=== PATIENT | male | born 1990 | race Caucasian/White ===

== ENCOUNTER 2018-06-10 01:07 | Emergency (ER) | payer SELFPAY ==
[~2018-06-10] VITALS: Ht 165.1 cm; Wt 57.2 kg
[2018-06-10 01:59] VITALS: BP 123/69
== END 2018-06-10 02:00 | disposition home or self-care (01) ==
LOC: ED 01:07
DX: S01.81XA Laceration without foreign body of other part of head, initial encounter (principal); W01.198A Fall on same level from slipping, tripping and stumbling with subsequent striking against other object, initial encounter; Y93.89 Activity, other specified; Y92.89 Other specified places as the place of occurrence of the external cause; Y99.8 Other external cause status
CPT/HCPCS: 90715; J2001

== ENCOUNTER 2019-12-14 18:48 | Emergency (ER) | payer SELFPAY ==
[~2019-12-14] VITALS: Ht 167.6 cm; Wt 59.0 kg
[2019-12-14 19:10] VITALS: Ht 167.6 cm; Wt 59.0 kg
[2019-12-14 20:50] VITALS: BP 131/74
== END 2019-12-14 20:50 | disposition home or self-care (01) ==
LOC: ED 18:48
DX: S61.210A Laceration without foreign body of right index finger without damage to nail, initial encounter (principal); S61.212A Laceration without foreign body of right middle finger without damage to nail, initial encounter; S61.214A Laceration without foreign body of right ring finger without damage to nail, initial encounter; S61.216A Laceration without foreign body of right little finger without damage to nail, initial encounter; W26.0XXA Contact with knife, initial encounter; Y93.89 Activity, other specified; Y92.89 Other specified places as the place of occurrence of the external cause; Y99.8 Other external cause status
CPT/HCPCS: 90715; J2001

== ENCOUNTER 2020-07-05 20:01 | Emergency (ER) | payer SELFPAY ==
[~2020-07-05] VITALS: Ht 167.6 cm; Wt 60.3 kg
[2020-07-05 20:31] VITALS: Ht 167.6 cm; Wt 60.3 kg
[2020-07-05 21:57] VITALS: BP 109/79
== END 2020-07-05 21:57 | disposition home or self-care (01) ==
LOC: ED 20:01
DX: S62.314A Displaced fracture of base of fourth metacarpal bone, right hand, initial encounter for closed fracture (principal); W18.30XA Fall on same level, unspecified, initial encounter; Y93.89 Activity, other specified; Y92.89 Other specified places as the place of occurrence of the external cause; Y99.8 Other external cause status
CPT/HCPCS: Q0092